=== PATIENT | female | born 1940 | race Caucasian/White ===

== ENCOUNTER 2018-07-01 16:14 | Emergency (ER) | payer MEDICARE ==
[~2018-07-01] VITALS: Ht 157.5 cm; Wt 58.1 kg
[2018-07-01 16:14] VITALS: BP 151/67
[~2018-07-01 16:14] MED LIST: ACET325T9 PO; ATOR40TA59 PO; CARB15DR3 OP; CARB1TAB2 PO; CHOL10003 PO; CYAN10005 PO; DICL100G18 TP; DROX300C PO; FLUD0.1T PO; FLUT9.9S NS; GLUC100018 PO; GUAI600T47 PO; IBUP-1060 PO; LACT1CAP6 PO; MELA3TAB2 PO; METF10007 PO; METH10TA4 PO; MIDO10TA PO; MIRT15TA PO; MULT-638 PO; NYST15CR TP; PANT20TA2 PO; POLY17PO29 PO; POTA20LI27 PEG; QUET25TA5 PO; SENN8.6T99 PO; VIT1TABL8 PO
--- NOTE | 2018-07-01 16:36 | PHYS DOC ---
Adult General HPI HPI Patient is a 77-year-old female who presents with obstruction to her PEG tube. Patient is resident at skilled nursing in [facility] and was diverted by the emergency room doctor at [facility] because they do not have GI service. Patient has had no vomiting. [facility] staff were concerned because they could not do feedings or give meds. Review of Systems Review of Systems Constitutional: Denies fever or chills [] Respiratory: Denies cough or shortness of breath [] Cardiovascular: No additional information not addressed in HPI [] GI: Denies vomiting or diarrhea [] Integument: Denies rash or skin lesions [] Neurologic: Denies headache, focal weakness or sensory changes [] Allergies Allergies Allergies Coded Allergies Type Severity Reaction Last Updated Verified No Known Drug Allergies 06/19/18 No Physical Exam Physical Exam Constitutional: Well developed, well nourished, no acute distress, non-toxic appearance. [] Neck: Normal range of motion, no tenderness, supple. [] Cardiovascular:Heart rate regular rhythm, no murmur [] Lungs & Thorax: Bilateral breath sounds clear to auscultation [] Abdomen: Bowel sounds normal, soft, no tenderness. [] Skin: Warm, dry, no erythema, no rash. [] EKG EKG [] Radiology/Procedures Radiology/Procedures [] Course & Med Decision Making Course & Med Decision Making Pertinent Labs and Imaging studies reviewed. (See chart for details) Patient seen and evaluated by ER staff and ER nurse evaluated patient's PEG tube. Nurse found that there was a pill fragment that was too large to pass and eventually was able to get pill to pass and now fluid is moving freely through tube. Dragon Disclaimer Dragon Disclaimer This electronic medical record was generated, in whole or in part, using a voice recognition dictation system. Departure Departure Impression: Primary Impression: Feeding tube obstruction Disposition: 01 HOME, SELF-CARE Condition: STABLE Referrals: CHRISTINA BABB (PCP) Patient Instructions: Care of a Feeding Tube, [id number] Problem Qualifiers Primary Impression: Feeding tube obstruction Encounter type: initial encounter Qualified Codes: T85.598A - Other mechanical complication of other gastrointestinal prosthetic devices, implants and grafts, initial encounter YOLY XAVIER Jr. DO Jul 01, 2018 16:36
== END 2018-07-01 17:49 | disposition home or self-care (01) ==
LOC: ER 16:14
DX: T85.598A Other mechanical complication of other gastrointestinal prosthetic devices, implants and grafts, initial encounter (principal); Y83.3 Surgical operation with formation of external stoma as the cause of abnormal reaction of the patient, or of later complication, without mention of misadventure at the time of the procedure; Y92.89 Other specified places as the place of occurrence of the external cause
CPT/HCPCS: 99284

== ENCOUNTER 2018-07-03 23:33 | Inpatient (IN) | payer MEDICARE ==
[~2018-07-03] VITALS: Ht 165.1 cm; Wt 48.7 kg
[~2018-07-03 23:33] MED LIST changes: +CYAN-25 PO; -CYAN10005 PO; +POTA20LI2 PEG; -POTA20LI27 PEG
[2018-07-03] MEDS ORDERED: MORPHINE SULFATE 4 MG/ML VIAL. IV/SQ PRN (23:45)
[2018-07-03] MEDS ORDERED: ALBUTEROL SULFATE 2.5 MG/3 ML NEBU. CONT NEB ONE (23:55)
[2018-07-03] MEDS ORDERED: methylPREDNISolone SOD SUCC PF 125 MG/2 ML VIAL. IV ONE (23:55)
[2018-07-03] MEDS ORDERED: IPRATROPIUM BROMIDE 0.5 MG/2.5 ML NEBU. NEB ONE (23:55)
[2018-07-04] VITALS (14 sets, daily range): BP systolic 52–144; BP diastolic 31–78
[2018-07-04 00:01] LABS: BASE EXCESS ABG 1 mmol/L (-3-3); HCO3 ABG 34 mmol/L (21-28); PO2 ABG 132 mmHg (65-108); SAT O2 ABG 96 % (92-99)
[2018-07-04 00:03] LABS: BASO # 0.1 x10^3/uL (0.0-0.2); BASO % 1 % (0-3); EOS % 0 % (0-3); HEMATOCRIT 34.6 % (36.0-47.0); LYMPH # 2.2 x10^3/uL (1.0-4.8); LYMPH % 12 % (24-48); MEAN CORPUSCULAR HEMOGLOBIN 30 pg (25-35); MEAN CORPUSCULAR HGB CONC 32 g/dL (31-37); MEAN CORPUSCULAR VOLUME 94 fL (79-100); MONO # 0.7 x10^3/uL (0.0-1.1); MONO % 4 % (0-9); NEUT # 15.1 x10^3uL (1.8-7.7); NEUT % 83 % (31-73); PLATELET COUNT 369 x10^3/uL (140-400); RED BLOOD COUNT 3.68 x10^6/uL (3.50-5.40); RED CELL DISTRIBUTION WIDTH 13.1 % (11.5-14.5)
[2018-07-04 00:14] LABS: CALCIUM 9.7 mg/dL (8.5-10.1); CREATININE 0.8 mg/dL (0.6-1.0); GFR 69.7; POTASSIUM 4.2 mmol/L (3.5-5.1)
[2018-07-04 00:20] LABS: ALBUMIN 3.4 g/dL (3.4-5.0); ALBUMIN/GLOBULIN RATIO 0.8 (1.0-1.7); TOTAL BILIRUBIN 0.3 mg/dL (0.2-1.0); TOTAL PROTEIN 7.7 g/dL (6.4-8.2)
[2018-07-04 00:37] LABS: % BANDS 4 % (0-9); % EOS 1 % (0-5); % LYMPHS 15 % (24-48); % MONOS 2 % (0-10); % SEGS 78 % (35-66); PLT ESTIMATE ADEQUATE (ADEQUATE); TOXIC GRANULATION SLIGHT
[2018-07-04 00:37] LABS: FIO2 ABG 100; PCO2 ABG 121 mmHg (35-46)
[2018-07-04] MEDS ORDERED: VANCOMYCIN 1GM IVPB FOR OMNI 250 ML IV ONE (00:45)
[2018-07-04] MEDS ORDERED: PIPERACILLIN/TAZOBACTAM 3.375 GM in IV NORMAL SALINE 50ML 50 ML IV ONE (00:45)
[2018-07-04] MEDS ORDERED: FUROSEMIDE 40 MG/4 ML VIAL. IVP ONE (01:00)
--- NOTE | 2018-07-04 01:12 | RAD ---
AP chest x-ray COMPARISON: Chest x-ray June 26, 2017. HISTORY: Extreme shortness of breath. FINDINGS: Borderline cardiomegaly. Mediastinal silhouette is normal. The nasogastric tube on the prior exam has been removed. Mild prominence of the pulmonary vasculature could indicate mild congestion. Development of left perihilar and lower lobe heterogeneous opacity. Right lung clear. A pneumothorax or pleural effusions. Bones unremarkable. IMPRESSION: Left perihilar and lower lobe infiltrate may represent asymmetric edema or pneumonia. There is mild pulmonary vascular congestion likely present. Borderline cardiomegaly is stable. Electronically signed by: Mike Hauser MD (07/04/2018 1:07 AM) [facility]
--- NOTE | 2018-07-04 01:31 | PHYS DOC ---
Past Medical History Past Medical History: Dementia, High Cholesterol, Other Additional Past Medical Histor: PARKINSON'S; DYSPHAGIA; G-TUBE Past Surgical History: Other Additional Past Surgical Histo: G-TUBE PLACEMENT Adult General Chief Complaint Chief Complaint: SHORTNESS OF BREATH HPI HPI Patient is a 77-year-old female who presents via [facility] with reports of respiratory distress. EMS reports that while in route, patient had inadequate respirations and so they were assisting with bagged respirations. Patient recently had been admitted to this facility with respiratory failure. She had also been to this facility because PEG tube had been obstructed. Additional history is limited due to severity of patient condition. Review of Systems Review of Systems Constitutional: Denies fever [] Respiratory: Positive cough and shortness of breath [] Cardiovascular: No additional information not addressed in HPI [] GI: No vomiting or diarrhea [] Neurologic: Positive mental status changes [] Unable to fully assess review of systems due to severity of patient condition. Current Medications Current Medications Current Medications Medications (Trade) Dose Ordered Sig/Alex Start Time Stop Time Status Last Admin Dose Admin Albuterol Sulfate (Ventolin Neb Soln) 10 mg 1X ONCE 07/03/18 23:55 07/03/18 23:56 DC 07/04/18 00:22 10 MG Furosemide (Lasix) 60 mg 1X ONCE 07/04/18 01:00 07/04/18 01:01 DC Ipratropium [place] (Atrovent) 0.5 mg 1X ONCE 07/03/18 23:55 07/03/18 23:56 DC 07/04/18 00:22 0.5 MG Methylprednisolone Sodium Succinate (SOLU-Medrol 125MG VIAL) 125 mg 1X ONCE 07/03/18 23:55 07/03/18 23:56 DC 07/04/18 00:03 125 MG Morphine Sulfate (Morphine Sulfate) 2 mg PRN Q15MIN PRN 07/03/18 23:45 07/04/18 23:44 07/04/18 00:11 2 MG Piperacillin Sod/ Tazobactam Sod 3.375 gm/Sodium Chloride 50 ml @ 100 mls/hr 1X ONCE 07/04/18 00:45 07/04/18 01:14 DC Vancomycin HCl 250 ml @ 250 mls/hr 1X ONCE 07/04/18 00:45 07/04/18 01:44 Allergies Allergies Allergies Coded Allergies Type Severity Reaction Last Updated Verified No Known Drug Allergies 06/19/18 No Physical Exam Physical Exam Constitutional: Patient unresponsive to verbal stimuli in moderate respiratory distress. [] HENT: Normocephalic, atraumatic, bilateral external ears normal, oropharynx dry , no oral exudates, nose normal. [] Eyes: PERRLA. [] Neck: Supple with no JVD or lymphadenopathy. [] Cardiovascular: Mildly tachycardic rate with regular rhythm [] Lungs & Thorax: Poor respiratory drive. Coarse rhonchi are noted in the lung bases bilaterally to auscultation [] Abdomen: Bowel sounds are managed, soft, no apparent tenderness. [] Skin: Warm, dry. [] Extremities: No tenderness, no cyanosis, no clubbing, no edema. [] Neurologic: Unresponsive to verbal stimuli. Unable to evaluate neurological status due to patient's middle state. [] Current Patient Data Vital Signs Vital Signs Date Time Temp Pulse Resp B/P (MAP) Pulse Ox O2 Delivery O2 Flow Rate FiO2 07/04/18 00:25 96 BiPAP/CPAP 07/04/18 00:11 18 Lab Values Laboratory Tests Test 07/03/18 23:41 07/03/18 23:50 O2 Saturation 96 % (92-99) Arterial Blood pH 7.06 (7.35-7.45) *L Arterial Blood pCO2 at Patient Temp 121 mmHg (35-46) *H Arterial Blood pO2 at Patient Temp 132 mmHg (65-108) H Arterial Blood HCO3 34 mmol/L (21-28) H Arterial Blood Base Excess 1 mmol/L (-3-3) FiO2 100 White Blood Count 18.0 x10^3/uL (4.0-11.0) H Red Blood Count 3.68 x10^6/uL (3.50-5.40) Hemoglobin 11.0 g/dL (12.0-15.5) L Hematocrit 34.6 % (36.0-47.0) L Mean Corpuscular Volume 94 fL (79-100) Mean Corpuscular Hemoglobin 30 pg (25-35) Mean Corpuscular Hemoglobin Concent 32 g/dL (31-37) Red Cell Distribution Width 13.1 % (11.5-14.5) Platelet Count 369 x10^3/uL (140-400) Neutrophils (%) (Auto) 83 % (31-73) H Lymphocytes (%) (Auto) 12 % (24-48) L Monocytes (%) (Auto) 4 % (0-9) Eosinophils (%) (Auto) 0 % (0-3) Basophils (%) (Auto) 1 % (0-3) Neutrophils # (Auto) 15.1 x10^3uL (1.8-7.7) H Lymphocytes # (Auto) 2.2 x10^3/uL (1.0-4.8) Monocytes # (Auto) 0.7 x10^3/uL (0.0-1.1) Eosinophils # (Auto) 0.0 x10^3/uL (0.0-0.7) Basophils # (Auto) 0.1 x10^3/uL (0.0-0.2) Segmented Neutrophils % 78 % (35-66) H Band Neutrophils % 4 % (0-9) Lymphocytes % 15 % (24-48) L Monocytes % 2 % (0-10) Eosinophils % 1 % (0-5) Toxic Granulation Slight Platelet Estimate Adequate (ADEQUATE) Sodium Level 146 mmol/L (136-145) H Potassium Level 4.2 mmol/L (3.5-5.1) Chloride Level 105 mmol/L (98-107) Carbon Dioxide Level 32 mmol/L (21-32) Anion Gap 9 (6-14) Blood Urea Nitrogen 13 mg/dL (7-20) Creatinine 0.8 mg/dL (0.6-1.0) Estimated GFR (Cockcroft-Gault) 69.7 BUN/Creatinine Ratio 16 (6-20) Glucose Level 260 mg/dL (70-99) H Calcium Level 9.7 mg/dL (8.5-10.1) Total Bilirubin 0.3 mg/dL (0.2-1.0) Aspartate Amino Transferase (AST) 15 U/L (15-37) Alanine Aminotransferase (ALT) 17 U/L (14-59) Alkaline Phosphatase 60 U/L (46-116) Troponin I Quantitative 0.042 ng/mL (0.000-0.055) DW-Suo-O-Type Natriuretic Peptide 6407 pg/mL (0-449) H Total Protein 7.7 g/dL (6.4-8.2) Albumin 3.4 g/dL (3.4-5.0) Albumin/Globulin Ratio 0.8 (1.0-1.7) L Laboratory Tests 07/03/18 23:50 Laboratory Tests 07/03/18 23:50 EKG EKG [] Interpretation Time: EKG demonstrates sinus rhythm with rate of 99. Radiology/Procedures Radiology/Procedures [] Impressions: Chest x-ray demonstrates interstitial edema with what appears to be superimposed left lower lobe infiltrate Course & Med Decision Making Course & Med Decision Making Pertinent Labs and Imaging studies reviewed. (See chart for details) [] Dragon Disclaimer Dragon Disclaimer This electronic medical record was generated, in whole or in part, using a voice recognition dictation system. Departure Departure Impression: Primary Impression: Acute hypercapnic respiratory failure Additional Impressions: CHF (congestive heart failure) Facility-acquired pneumonia Disposition: ADMITTED INPATIENT Admitting Physician: Figueroa Greenwood Condition: GUARDED Referrals: UNKNOWN PCP NAME (PCP) Problem Qualifiers Additional Impressions: CHF (congestive heart failure) Heart failure type: unspecified Heart failure chronicity: unspecified Qualified Codes: I50.9 - Heart failure, unspecified YOLY XAVIER Jr. DO Jul 04, 2018 01:31
[2018-07-04] MEDS ORDERED: ONDANSETRON PF 4 MG/2 ML VIAL. IV PRN (01:45)
[2018-07-04] MEDS ORDERED: ACETAMINOPHEN 325 MG TABLET. PO PRN (01:45)
[2018-07-04] MEDS ORDERED: MORPHINE SULFATE 4 MG/ML VIAL. IV PRN (01:45)
--- NOTE | 2018-07-04 02:08 | EKG ---
[facility] [address] [place] [address] Test Date: 2018-07-04 Test Time: 00:17:42 Pat Name: ALFONSO REYES Department: Room: 114 1 Gender: F Residential Appliance Repair Technician: : [id number] Requested By: YOLY XAVIER Order Number: [id number] Reading MD: Otoniel Gonzales MD Measurements Intervals [place] Rate: 99 P: 32 OH: 130 QRS: -26 QRSD: 78 T: 126 QT: 328 QTc: 421 Interpretive Statements SINUS RHYTHM LEFTWARD AXIS LVH WITH REPOLARIZATION ABNORMALITY NON-SPECIFIC ST/T CHANGES Electronically Signed On 07-10-2018 9:15:13 [employer] by Otoniel Gonzales MD
[2018-07-04 03:34] LABS: BILIRUBIN,URINE NEGATIVE (NEG); CLARITY,URINE CLOUDY; COLOR,URINE YELLOW; NITRITE,URINE NEGATIVE (NEG); PROTEIN,URINE 100 mg/dL (NEG-TRACE); UROBILINOGEN,URINE 0.2 mg/dL (0.2 mg/dL)
[2018-07-04 03:43] LABS: BACTERIA,URINE FEW /HPF (0-FEW); SQUAMOUS EPITHELIAL CELL,UR OCC /LPF; WBC,URINE TNTC /HPF (0-4); YEAST,URINE PRESENT /HPF
--- NOTE | 2018-07-04 03:50 | NUR ---
Patient admitted to ICU room 114. Arrived via gurney on Bipap accompanied by RN and RT. Patient unresponsive at this time and unable to answer admission questions. Admission information completed using report from ED nurse and past visit. Unable to orientate patient at this time. Pressure ulcer present on admission see wound assessment intervention for details. Patient arrived with Castaneda cath that was inserted prior to admission. Physician notified of low MAP, orders received to start Levophed on patient at this time.
[2018-07-04] MEDS ORDERED: NOREPINEPHRIN 8MG/250ML PREMIX 250 ML IV PRN (04:30)
[2018-07-04] MEDS ORDERED: PIP/TAZO PER PHARMACY MC PRN (04:30)
[2018-07-04] MEDS ORDERED: PIPERACILLIN/TAZOBACTAM 2.25 GM in IV NORMAL SALINE 50ML 50 ML IV SCH (06:00)
[2018-07-04] MEDS: VANCOMYCIN PER PHARMACY MC PRN ×2 (06:17→10:45)
--- NOTE | 2018-07-04 06:21 | NUR ---
Pharmacy Vancomycin Dosing Note S:Consulted to monitor and dose vancomycin started 07/04/18. O:ALFONSO REYES is a 77 year old F with HCAP . Height: 5 feet, 5 inches Weight: 48.748507 kg [place] Body Weight: 57.00 Adjusted Body Weight: 53.68 Dosing Weight: Actual Other Antibiotics: ZOSYN 2.25GM IV Q6H LABS: Last BUN: 13 Last Creatinine: 0.8 Creatinine Clearance: 36.8 mL/min Last WBC: 18.0 Last Procalcitonin: Tmax (past 24 hours): Microbiology: I/O: Drug Levels: Last level: on at Last dose given at Vancomycin Dosing: Loading Dose: 1000 mg x1 07/04/18 0045 Dosing Weight: Actual Target Trough: 15-20 A: Based on: Actual Wt and CrCl P: 1. 07/05/18 0100 Vancomycin 750 mg IV q24h 2. Follow up Trough level on 07/06/18 at 0030 3. Pharmacy will continue to monitor, follow and adjust therapy as needed. HUNTER GOMEZ RPH, 07/04/18 0622 Signed: 07/04/18 at 0623 by HUNTER GOMEZ RPH PHA
[2018-07-04] MEDS ORDERED: IPRATRPIUM/ALBUTEROL 0.5/2.5MG 3 ML NEBU. NEB SCH (08:00)
[2018-07-04 08:22] LABS: BASE EXCESS ABG -1 mmol/L (-3-3); HCO3 ABG 30 mmol/L (21-28); PO2 ABG 221 mmHg (65-108); SAT O2 ABG 99 % (92-99)
--- NOTE | 2018-07-04 08:27 | NUR ---
SS following for discharge planning. SS reviewed pt chart. Pt is a LTC resident from [facility], ; fax [phone]. Pt is currently on BIPAP/CPAP. SS will continue to follow for discharge needs.
[2018-07-04 08:29] LABS: FIO2 ABG 70; PCO2 ABG 98 mmHg (35-46)
--- NOTE | 2018-07-04 08:40 | NUR ---
Pt O2 sats decreased down to 54%, FiO2 increased back to 100%. Family at the bedside. Dr. Wynn on the unit and saw the pt and spoke with the family. Plans to move to comfort care when the rest of the family is here and to remove the bipap and start a morphine drip to keep pt comfortable.
--- NOTE | 2018-07-04 09:12 | PDOC ---
PULMONARY PROGRESS NOTES Vitals Vital Signs Date Time Temp Pulse Resp B/P (MAP) Pulse Ox O2 Delivery O2 Flow Rate FiO2 07/04/18 08:10 98 BiPAP/CPAP 07/04/18 08:00 100.5 96 27 109/67 (81) 100.5 07/04/18 02:20 15.0 General: Alert HEENT: Other Lungs: Clear Cardiovascular: S1, S2 Abdomen: Soft, Non-tender, Other Extremities: Other Labs Laboratory Tests Test 07/03/18 23:41 07/03/18 23:50 07/04/18 02:50 07/04/18 04:20 O2 Saturation 96 % (92-99) Arterial Blood pH 7.06 (7.35-7.45) Arterial Blood pCO2 at Patient Temp 121 mmHg (35-46) Arterial Blood pO2 at Patient Temp 132 mmHg (65-108) Arterial Blood HCO3 34 mmol/L (21-28) Arterial Blood Base Excess 1 mmol/L (-3-3) FiO2 100 White Blood Count 18.0 x10^3/uL (4.0-11.0) Red Blood Count 3.68 x10^6/uL (3.50-5.40) Hemoglobin 11.0 g/dL (12.0-15.5) Hematocrit 34.6 % (36.0-47.0) Mean Corpuscular Volume 94 fL (79-100) Mean Corpuscular Hemoglobin 30 pg (25-35) Mean Corpuscular Hemoglobin Concent 32 g/dL (31-37) Red Cell Distribution Width 13.1 % (11.5-14.5) Platelet Count 369 x10^3/uL (140-400) Neutrophils (%) (Auto) 83 % (31-73) Lymphocytes (%) (Auto) 12 % (24-48) Monocytes (%) (Auto) 4 % (0-9) Eosinophils (%) (Auto) 0 % (0-3) Basophils (%) (Auto) 1 % (0-3) Neutrophils # (Auto) 15.1 x10^3uL (1.8-7.7) Lymphocytes # (Auto) 2.2 x10^3/uL (1.0-4.8) Monocytes # (Auto) 0.7 x10^3/uL (0.0-1.1) Eosinophils # (Auto) 0.0 x10^3/uL (0.0-0.7) Basophils # (Auto) 0.1 x10^3/uL (0.0-0.2) Segmented Neutrophils % 78 % (35-66) Band Neutrophils % 4 % (0-9) Lymphocytes % 15 % (24-48) Monocytes % 2 % (0-10) Eosinophils % 1 % (0-5) Toxic Granulation Slight Platelet Estimate Adequate (ADEQUATE) Sodium Level 146 mmol/L (136-145) Potassium Level 4.2 mmol/L (3.5-5.1) Chloride Level 105 mmol/L (98-107) Carbon Dioxide Level 32 mmol/L (21-32) Anion Gap 9 (6-14) Blood Urea Nitrogen 13 mg/dL (7-20) Creatinine 0.8 mg/dL (0.6-1.0) Estimated GFR (Cockcroft-Gault) 69.7 BUN/Creatinine Ratio 16 (6-20) Glucose Level 260 mg/dL (70-99) Lactic Acid Level 0.9 mmol/L (0.4-2.0) Calcium Level 9.7 mg/dL (8.5-10.1) Total Bilirubin 0.3 mg/dL (0.2-1.0) Aspartate Amino Transf (AST/SGOT) 15 U/L (15-37) Alanine Aminotransferase (ALT/SGPT) 17 U/L (14-59) Alkaline Phosphatase 60 U/L (46-116) Troponin I Quantitative 0.042 ng/mL (0.000-0.055) 0.071 ng/mL (0.000-0.055) GO-Hhp-Y-Type Natriuretic Peptide 6407 pg/mL (0-449) Total Protein 7.7 g/dL (6.4-8.2) Albumin 3.4 g/dL (3.4-5.0) Albumin/Globulin Ratio 0.8 (1.0-1.7) Urine Collection Type Unknown Urine Color Yellow Urine Clarity Cloudy Urine pH 7.0 Urine Specific [place] 1.020 Urine Protein 100 mg/dL (NEG-TRACE) Urine Glucose (UA) Negative mg/dL (NEG) Urine Ketones (Stick) 15 mg/dL (NEG) Urine Blood Large (NEG) Urine Nitrite Negative (NEG) Urine Bilirubin Negative (NEG) Urine Urobilinogen Dipstick 0.2 mg/dL (0.2 mg/dL) Urine Leukocyte Esterase Large (NEG) Urine RBC 11-20 /HPF (0-2) Urine WBC Tntc /HPF (0-4) Urine Squamous Epithelial Cells Occ /LPF Urine Bacteria Few /HPF (0-FEW) Urine Mucus Mod /LPF Urine Yeast Present /HPF Test 07/04/18 07:35 07/04/18 08:10 Troponin I Quantitative 0.063 ng/mL (0.000-0.055) O2 Saturation 99 % (92-99) Arterial Blood pH 7.11 (7.35-7.45) Arterial Blood pCO2 at Patient Temp 98 mmHg (35-46) Arterial Blood pO2 at Patient Temp 221 mmHg (65-108) Arterial Blood HCO3 30 mmol/L (21-28) Arterial Blood Base Excess -1 mmol/L (-3-3) FiO2 70 Laboratory Tests Test 07/03/18 23:41 07/03/18 23:50 07/04/18 02:50 07/04/18 04:20 O2 Saturation 96 % (92-99) Arterial Blood pH 7.06 (7.35-7.45) Arterial Blood pCO2 at Patient Temp 121 mmHg (35-46) Arterial Blood pO2 at Patient Temp 132 mmHg (65-108) Arterial Blood HCO3 34 mmol/L (21-28) Arterial Blood Base Excess 1 mmol/L (-3-3) FiO2 100 White Blood Count 18.0 x10^3/uL (4.0-11.0) Red Blood Count 3.68 x10^6/uL (3.50-5.40) Hemoglobin 11.0 g/dL (12.0-15.5) Hematocrit 34.6 % (36.0-47.0) Mean Corpuscular Volume 94 fL (79-100) Mean Corpuscular Hemoglobin 30 pg (25-35) Mean Corpuscular Hemoglobin Concent 32 g/dL (31-37) Red Cell Distribution Width 13.1 % (11.5-14.5) Platelet Count 369 x10^3/uL (140-400) Neutrophils (%) (Auto) 83 % (31-73) Lymphocytes (%) (Auto) 12 % (24-48) Monocytes (%) (Auto) 4 % (0-9) Eosinophils (%) (Auto) 0 % (0-3) Basophils (%) (Auto) 1 % (0-3) Neutrophils # (Auto) 15.1 x10^3uL (1.8-7.7) Lymphocytes # (Auto) 2.2 x10^3/uL (1.0-4.8) Monocytes # (Auto) 0.7 x10^3/uL (0.0-1.1) Eosinophils # (Auto) 0.0 x10^3/uL (0.0-0.7) Basophils # (Auto) 0.1 x10^3/uL (0.0-0.2) Segmented Neutrophils % 78 % (35-66) Band Neutrophils % 4 % (0-9) Lymphocytes % 15 % (24-48) Monocytes % 2 % (0-10) Eosinophils % 1 % (0-5) Toxic Granulation Slight Platelet Estimate Adequate (ADEQUATE) Sodium Level 146 mmol/L (136-145) Potassium Level 4.2 mmol/L (3.5-5.1) Chloride Level 105 mmol/L (98-107) Carbon Dioxide Level 32 mmol/L (21-32) Anion Gap 9 (6-14) Blood Urea Nitrogen 13 mg/dL (7-20) Creatinine 0.8 mg/dL (0.6-1.0) Estimated GFR (Cockcroft-Gault) 69.7 BUN/Creatinine Ratio 16 (6-20) Glucose Level 260 mg/dL (70-99) Lactic Acid Level 0.9 mmol/L (0.4-2.0) Calcium Level 9.7 mg/dL (8.5-10.1) Total Bilirubin 0.3 mg/dL (0.2-1.0) Aspartate Amino Transf (AST/SGOT) 15 U/L (15-37) Alanine Aminotransferase (ALT/SGPT) 17 U/L (14-59) Alkaline Phosphatase 60 U/L (46-116) Troponin I Quantitative 0.042 ng/mL (0.000-0.055) 0.071 ng/mL (0.000-0.055) KL-Qio-V-Type Natriuretic Peptide 6407 pg/mL (0-449) Total Protein 7.7 g/dL (6.4-8.2) Albumin 3.4 g/dL (3.4-5.0) Albumin/Globulin Ratio 0.8 (1.0-1.7) Urine Collection Type Unknown Urine Color Yellow Urine Clarity Cloudy Urine pH 7.0 Urine Specific [place] 1.020 Urine Protein 100 mg/dL (NEG-TRACE) Urine Glucose (UA) Negative mg/dL (NEG) Urine Ketones (Stick) 15 mg/dL (NEG) Urine Blood Large (NEG) Urine Nitrite Negative (NEG) Urine Bilirubin Negative (NEG) Urine Urobilinogen Dipstick 0.2 mg/dL (0.2 mg/dL) Urine Leukocyte Esterase Large (NEG) Urine RBC 11-20 /HPF (0-2) Urine WBC Tntc /HPF (0-4) Urine Squamous Epithelial Cells Occ /LPF Urine Bacteria Few /HPF (0-FEW) Urine Mucus Mod /LPF Urine Yeast Present /HPF Test 07/04/18 07:35 07/04/18 08:10 Troponin I Quantitative 0.063 ng/mL (0.000-0.055) O2 Saturation 99 % (92-99) Arterial Blood pH 7.11 (7.35-7.45) Arterial Blood pCO2 at Patient Temp 98 mmHg (35-46) Arterial Blood pO2 at Patient Temp 221 mmHg (65-108) Arterial Blood HCO3 30 mmol/L (21-28) Arterial Blood Base Excess -1 mmol/L (-3-3) FiO2 70 Medications Active Scripts Medications Dose Route/Sig Max Daily Dose Days Date Category Voltaren (Diclofenac Sodium) 100 Gm Gel..gram. 4 Gm TP PRN Q12HRS PRN 06/19/18 Reported Vitamin D3 (Cholecalciferol (Vitamin D3)) 1,000 Unit Tablet 2,000 Unit PO DAILY 06/19/18 Reported Vitamin B-12 (Cyanocobalamin (Vitamin B-12)) 1,000 Mcg Tablet 1,000 Mcg PO DAILY 06/19/18 Reported Tylenol (Acetaminophen) 325 Mg Tablet 325 Mg PO PRN Q6-8HRS PRN 06/19/18 Reported Thera M Plus Tablet (Multivits,Ca,Minerals/Iron/FA) 1 Each Tablet 1 Each PO DAILY 06/19/18 Reported Seroquel (Quetiapine Fumarate) 25 Mg Tablet 25 Mg PO HS 06/19/18 Reported Senokot (Sennosides) 8.6 Mg Tablet 1 Tab PO PRN DAILY PRN 1/14/19 Reported Ritalin (Methylphenidate Hcl) 10 Mg Tablet 10 Mg PO DAILY 06/19/18 Reported Remeron (Mirtazapine) 15 Mg Tablet 15 Mg PO HS 06/19/18 Reported Refresh Optive Eye Drops (Carboxymethylcellulos/Glycerin) 15 Ml Drops 15 Ml OP TID 06/19/18 Reported Protonix (Pantoprazole Sodium) 20 Mg Tablet.dr 20 Mg PO DAILY 06/19/18 Reported Potassium Chloride Oral Liquid (Potassium Chloride) 20 Meq/15 Ml Liquid 20 Meq PEG DAILY 06/19/18 Reported Nystatin 15 Gm Cream..g. 15 Gm TP BID 06/19/18 Reported Miralax (Polyethylene Glycol 3350) 17 Gm Powd.pack 1 Packet PO PRN DAILY 06/19/18 Reported Midodrine Hcl 10 Mg Tablet 10 Mg PO TID 06/19/18 Reported Metformin Hcl 1,000 Mg Tablet 1,000 Mg PO BIDWMEALS 06/19/18 Reported Melatonin 3 Mg Tablet 3 Mg PO HS 06/19/18 Reported Probiotic (Lactobacillus Acidophilus) 1 Each Capsule 1 Each PO BID 06/19/18 Reported I-Nadeem Tablet (Vit A,C & E/Lutein/Minerals) 1 Each Tablet 1 Each PO DAILY 06/19/18 Reported Ibuprofen 800 Mg Tablet 800 Mg PO PRN Q8HRS PRN 06/19/18 Reported Mucinex (Guaifenesin) 600 Mg Tablet.er 1 Tab PO BID 06/19/18 Reported Glucosamine (Glucosamine Sulfate 2KCL) 1,000 Mg Tablet 1,000 Mg PO DAILY 06/19/18 Reported Fludrocortisone Acetate 0.1 Mg Tablet 0.1 Mg PO BID 06/19/18 Reported Flonase Allergy Relief (Fluticasone Propionate) 9.9 Ml [place].susp 2 Sprays NS DAILY 06/19/18 Reported Northera (Droxidopa) 300 Mg Capsule 300 Mg PO TIDAC 06/19/18 Reported Sinemet 25-100 Mg Tablet (Carbidopa/Levodopa) 1 Each Tablet 1 Tab PO PRN Q8HRS PRN 06/19/18 Reported Sinemet 25-100 Mg Tablet (Carbidopa/Levodopa) 1 Each Tablet 0.5 Tab PO Q4HRS 06/19/18 Reported Atorvastatin Calcium 40 Mg Tablet 40 Mg PO HS 06/19/18 Reported Impression . Long discussion with family Pt with advance directive, no intubation no CPR will proceed with morphine drip and prn Ativan see orders Pt is actively dying DINORAH FIGUEROA MD Jul 04, 2018 09:12
[2018-07-04] MEDS ORDERED: MORPHINE SULFATE/PF 30 ML IV PRN (09:15)
[2018-07-04] MEDS ORDERED: MORPHINE SULFATE 2 MG/ML VIAL. IV SCH (09:15)
[2018-07-04] MEDS ORDERED: MORPHINE SULFATE 4 MG/ML VIAL. IV ONE (10:00)
--- NOTE | 2018-07-04 10:35 | NUR ---
PT given 4mg of morphine and 2mg of ativan and morphine drip started. Breathing appears to be less labored, bipap removed and pt placed on nasal cannula. Family at the bedside with clergyman.
--- NOTE | 2018-07-04 11:50 | NUR ---
Pt at this time, Pronouncement of made by Dr. Moreland. Family at the bedside with clergyman.
--- NOTE | 2018-07-04 11:56 | PDOC1 ---
History and Physical Date of Admission Date of Admission DATE: 07/04/18 TIME: 11:46 Identification/Chief Complaint Chief Complaint Shortness of breath Source Source: Caregiver, Chart review History of Present Illness History of Present Illness 77-year-old female who presents via [facility] with reports of respiratory distress. EMS reports that while in route, patient had inadequate respirations and so they were assisting with bagged respirations. Patient recently had been admitted to this facility with respiratory failure. She had also been to this facility because PEG tube had been obstructed. Additional history is limited due to severity of patient condition. She was found with AB.06/121/132 started on BIPAP, had leukocytosis and hypernatremia as well She is a resident at [facility], who was admitted on 06/19/2018 with an altered mental status. She was found to be unresponsive with agonal breathing. Was treated for sepsis with possible sources of pneumonia versus urinary tract infection. She did very well actually, and she was treated with Zosyn and vancomycin. She was eventually successfully extubated; however, the family have noted marked decline in her condition recently, and after discussion with the palliative care team, they opted to account for comfort care , and therefore, a decision was made to discharge her back to [facility] with the plan to consult hospice for evaluation and treatment which was pending prior to her return to the ED today. After long discussion with family and pulmonary the family has asked to have hospice evaluation now and withdraw aggressive care. Current Problem List Problem List Problems Medical Problems: (1) Acute hypercapnic respiratory failure Status: Acute (2) CHF (congestive heart failure) Status: Acute (3) Facility-acquired pneumonia Status: Acute Current Medications Current Medications Current Medications Ipratropium [place] (Atrovent) 0.5 mg 1X ONCE NEB Last administered on at 00:22; Start 07/03/18 at 23:55; Stop 07/03/18 at 23:56; Status DC Methylprednisolone Sodium Succinate (SOLU-Medrol 125MG VIAL) 125 mg 1X ONCE IV Last administered on 07/04/18at 00:03; Start 07/03/18 at 23:55; Stop 07/03/18 at 23:56; Status DC Albuterol Sulfate (Ventolin Neb Soln) 10 mg 1X ONCE CONT NEB Last administered on 07/04/18at 00:22; Start 07/03/18 at 23:55; Stop 07/03/18 at 23:56 ; Status DC Morphine Sulfate (Morphine Sulfate) 2 mg PRN Q15MIN PRN IV/SQ PAIN GREATER THAN 3/10 Last administered on 07/04/18at 00:11; Start 07/03/18 at 23:45; Stop at 08:23; Status DC Vancomycin HCl 250 ml @ 250 mls/hr 1X ONCE IV Last administered on 07/04/18at 01:28; Start 07/04/18 at 00:45; Stop 07/04/18 at 01:44; Status DC Piperacillin Sod/ Tazobactam Sod 3.375 gm/Sodium Chloride 50 ml @ 100 mls/hr 1X ONCE IV Last administered on 07/04/18at 02:55; Start 07/04/18 at 00:45; Stop 07/04/18 at 01:14; Status DC Furosemide (Lasix) 60 mg 1X ONCE IVP Last administered on 07/04/18at 01:20; Start 07/04/18 at 01:00; Stop 07/04/18 at 01:01; Status DC Ondansetron HCl (Zofran) 4 mg PRN Q8HRS PRN IV NAUSEA/VOMITING; Start 07/04/18 at 01:45; Stop 07/05/18 at 01:44 Morphine Sulfate (Morphine Sulfate) 2 mg PRN Q2HR PRN IV PAIN; Start 07/04/18 at 01:45; Stop 07/05/18 at 01:44 Acetaminophen (Tylenol) 650 mg PRN Q4HRS PRN PO FEVER; Start 07/04/18 at 01:45 ; Stop 07/05/18 at 01:44 Albuterol/ Ipratropium (Duoneb) 3 ml RTQID NEB Last administered on 07/04/18at 08:17; Start 07/04/18 at 08:00; Stop 07/05/18 at 07:59 Norepinephrine Bitartrate 250 ml @ 1.875 mls/ hr CONT PRN IV SEE I/O RECORD Last administered on 07/04/18at 04:42; Start 07/04/18 at 04:30 Vancomycin HCl (Vanco Per Pharmacy) 1 each PRN DAILY PRN MC SEE COMMENTS Last administered on 07/04/18at 10:45; Start 07/04/18 at 04:30 Piperacillin Sod/ Tazobactam Sod (Zosyn Per Pharmacy) 1 each PRN DAILY PRN MC SEE COMMENTS; Start 07/04/18 at 04:30 Piperacillin Sod/ Tazobactam Sod 2.25 gm/Sodium Chloride 50 ml @ 100 mls/hr Q6HRS IV Last administered on 07/04/18at 05:43; Start 07/04/18 at 06:00 Vancomycin HCl 750 mg/Sodium Chloride 250 ml @ 250 mls/hr Q24H IV ; Start 07/05 at 01:00 Vancomycin HCl (Vancomycin Trough Level) 1 each 1X ONCE MC ; Start 07/06/18 at 00:30; Stop 07/06/18 at 00:31 Morphine Sulfate (Morphine Sulfate) 2 mg CONT IV ; Start 07/04/18 at 09:15; Stop 07/04/18 at 09:18; Status DC Lorazepam (Ativan) 2 mg PRN Q2HRS PRN IV ANXIETY / AGITATION Last administered on 07/04/18at 10:33; Start 07/04/18 at 09:15 Morphine Sulfate 30 ml @ 0 mls/hr CONT PRN PRN IV PER PROTOCOL Last administered on 07/04/18at 10:45; Start 07/04/18 at 09:15 Morphine Sulfate (Morphine Sulfate) 4 mg 1X ONCE IV Last administered on at 10:33; Start 07/04/18 at 10:00; Stop 07/04/18 at 10:01; Status DC Active Scripts Active Reported Voltaren (Diclofenac Sodium) 100 Gm Gel..gram. 4 Gm TP PRN Q12HRS PRN Vitamin D3 (Cholecalciferol (Vitamin D3)) 1,000 Unit Tablet 2,000 Unit PO DAILY Vitamin B-12 (Cyanocobalamin (Vitamin B-12)) 1,000 Mcg Tablet 1,000 Mcg PO DAILY Tylenol (Acetaminophen) 325 Mg Tablet 325 Mg PO PRN Q6-8HRS PRN Thera M Plus Tablet (Multivits,Ca,Minerals/Iron/FA) 1 Each Tablet 1 Each PO DAILY Seroquel (Quetiapine Fumarate) 25 Mg Tablet 25 Mg PO HS Senokot (Sennosides) 8.6 Mg Tablet 1 Tab PO PRN DAILY PRN Ritalin (Methylphenidate Hcl) 10 Mg Tablet 10 Mg PO DAILY Remeron (Mirtazapine) 15 Mg Tablet 15 Mg PO HS Refresh Optive Eye Drops (Carboxymethylcellulos/Glycerin) 15 Ml Drops 15 Ml OP TID Protonix (Pantoprazole Sodium) 20 Mg Tablet.dr 20 Mg PO DAILY Potassium Chloride Oral Liquid (Potassium Chloride) 20 Meq/15 Ml Liquid 20 Meq PEG DAILY Nystatin 15 Gm Cream..g. 15 Gm TP BID Miralax (Polyethylene Glycol 3350) 17 Gm Powd.pack 1 Packet PO PRN DAILY Midodrine Hcl 10 Mg Tablet 10 Mg PO TID Metformin Hcl 1,000 Mg Tablet 1,000 Mg PO BIDWMEALS Melatonin 3 Mg Tablet 3 Mg PO HS Probiotic (Lactobacillus Acidophilus) 1 Each Capsule 1 Each PO BID I-Nadeem Tablet (Vit A,C & E/Lutein/Minerals) 1 Each Tablet 1 Each PO DAILY Ibuprofen 800 Mg Tablet 800 Mg PO PRN Q8HRS PRN Mucinex (Guaifenesin) 600 Mg Tablet.er 1 Tab PO BID Glucosamine (Glucosamine Sulfate 2KCL) 1,000 Mg Tablet 1,000 Mg PO DAILY Fludrocortisone Acetate 0.1 Mg Tablet 0.1 Mg PO BID Flonase Allergy Relief (Fluticasone Propionate) 9.9 Ml [place].susp 2 Sprays NS DAILY Northera (Droxidopa) 300 Mg Capsule 300 Mg PO TIDAC Sinemet 25-100 Mg Tablet (Carbidopa/Levodopa) 1 Each Tablet 1 Tab PO PRN Q8HRS PRN Sinemet 25-100 Mg Tablet (Carbidopa/Levodopa) 1 Each Tablet 0.5 Tab PO Q4HRS Atorvastatin Calcium 40 Mg Tablet 40 Mg PO HS Allergies Allergies: Coded Allergies: No Known Drug Allergies (Unverified , 06/19/18) PER FAMILY ROS Review of System Unable to obtain due to patient condition Physical Exam General: severe distress HEENT: Atraumatic, PERRLA, EOMI, Mucous membr. moist/pink Lungs: Other (Bilateral rhonci) Heart: S1S2, RRR, no gallops, no murmurs Abdomen: Normal bowel sounds, Soft, No tenderness, No hepatosplenomegaly, No masses Extremities: No clubbing, No cyanosis, Normal pulses, Other (Bilateral edema, bruising) Skin: Other (Brusing, skin breakdown in gluteal area) Neuro: Other (Moving limbs) Vitals Vitals Vital Signs Date Time Temp Pulse Resp B/P (MAP) Pulse Ox O2 Delivery O2 Flow Rate FiO2 07/04/18 11:00 35 26 103/48 (66) 85 Nasal Cannula 2.0 07/04/18 08:00 100.5 100.5 Labs Labs Laboratory Tests Test 07/03/18 23:41 07/03/18 23:50 07/04/18 02:50 07/04/18 04:20 O2 Saturation 96 % (92-99) Arterial Blood pH 7.06 (7.35-7.45) Arterial Blood pCO2 at Patient Temp 121 mmHg (35-46) Arterial Blood pO2 at Patient Temp 132 mmHg (65-108) Arterial Blood HCO3 34 mmol/L (21-28) Arterial Blood Base Excess 1 mmol/L (-3-3) FiO2 100 White Blood Count 18.0 x10^3/uL (4.0-11.0) Red Blood Count 3.68 x10^6/uL (3.50-5.40) Hemoglobin 11.0 g/dL (12.0-15.5) Hematocrit 34.6 % (36.0-47.0) Mean Corpuscular Volume 94 fL (79-100) Mean Corpuscular Hemoglobin 30 pg (25-35) Mean Corpuscular Hemoglobin Concent 32 g/dL (31-37) Red Cell Distribution Width 13.1 % (11.5-14.5) Platelet Count 369 x10^3/uL (140-400) Neutrophils (%) (Auto) 83 % (31-73) Lymphocytes (%) (Auto) 12 % (24-48) Monocytes (%) (Auto) 4 % (0-9) Eosinophils (%) (Auto) 0 % (0-3) Basophils (%) (Auto) 1 % (0-3) Neutrophils # (Auto) 15.1 x10^3uL (1.8-7.7) Lymphocytes # (Auto) 2.2 x10^3/uL (1.0-4.8) Monocytes # (Auto) 0.7 x10^3/uL (0.0-1.1) Eosinophils # (Auto) 0.0 x10^3/uL (0.0-0.7) Basophils # (Auto) 0.1 x10^3/uL (0.0-0.2) Segmented Neutrophils % 78 % (35-66) Band Neutrophils % 4 % (0-9) Lymphocytes % 15 % (24-48) Monocytes % 2 % (0-10) Eosinophils % 1 % (0-5) Toxic Granulation Slight Platelet Estimate Adequate (ADEQUATE) Sodium Level 146 mmol/L (136-145) Potassium Level 4.2 mmol/L (3.5-5.1) Chloride Level 105 mmol/L (98-107) Carbon Dioxide Level 32 mmol/L (21-32) Anion Gap 9 (6-14) Blood Urea Nitrogen 13 mg/dL (7-20) Creatinine 0.8 mg/dL (0.6-1.0) Estimated GFR (Cockcroft-Gault) 69.7 BUN/Creatinine Ratio 16 (6-20) Glucose Level 260 mg/dL (70-99) Lactic Acid Level 0.9 mmol/L (0.4-2.0) Calcium Level 9.7 mg/dL (8.5-10.1) Total Bilirubin 0.3 mg/dL (0.2-1.0) Aspartate Amino Transf (AST/SGOT) 15 U/L (15-37) Alanine Aminotransferase (ALT/SGPT) 17 U/L (14-59) Alkaline Phosphatase 60 U/L (46-116) Troponin I Quantitative 0.042 ng/mL (0.000-0.055) 0.071 ng/mL (0.000-0.055) IU-Cft-L-Type Natriuretic Peptide 6407 pg/mL (0-449) Total Protein 7.7 g/dL (6.4-8.2) Albumin 3.4 g/dL (3.4-5.0) Albumin/Globulin Ratio 0.8 (1.0-1.7) Urine Collection Type Unknown Urine Color Yellow Urine Clarity Cloudy Urine pH 7.0 Urine Specific [place] 1.020 Urine Protein 100 mg/dL (NEG-TRACE) Urine Glucose (UA) Negative mg/dL (NEG) Urine Ketones (Stick) 15 mg/dL (NEG) Urine Blood Large (NEG) Urine Nitrite Negative (NEG) Urine Bilirubin Negative (NEG) Urine Urobilinogen Dipstick 0.2 mg/dL (0.2 mg/dL) Urine Leukocyte Esterase Large (NEG) Urine RBC 11-20 /HPF (0-2) Urine WBC Tntc /HPF (0-4) Urine Squamous Epithelial Cells Occ /LPF Urine Bacteria Few /HPF (0-FEW) Urine Mucus Mod /LPF Urine Yeast Present /HPF Test 07/04/18 07:35 07/04/18 08:10 Troponin I Quantitative 0.063 ng/mL (0.000-0.055) O2 Saturation 99 % (92-99) Arterial Blood pH 7.11 (7.35-7.45) Arterial Blood pCO2 at Patient Temp 98 mmHg (35-46) Arterial Blood pO2 at Patient Temp 221 mmHg (65-108) Arterial Blood HCO3 30 mmol/L (21-28) Arterial Blood Base Excess -1 mmol/L (-3-3) FiO2 70 Laboratory Tests Test 07/03/18 23:41 07/03/18 23:50 07/04/18 02:50 07/04/18 04:20 O2 Saturation 96 % (92-99) Arterial Blood pH 7.06 (7.35-7.45) Arterial Blood pCO2 at Patient Temp 121 mmHg (35-46) Arterial Blood pO2 at Patient Temp 132 mmHg (65-108) Arterial Blood HCO3 34 mmol/L (21-28) Arterial Blood Base Excess 1 mmol/L (-3-3) FiO2 100 White Blood Count 18.0 x10^3/uL (4.0-11.0) Red Blood Count 3.68 x10^6/uL (3.50-5.40) Hemoglobin 11.0 g/dL (12.0-15.5) Hematocrit 34.6 % (36.0-47.0) Mean Corpuscular Volume 94 fL (79-100) Mean Corpuscular Hemoglobin 30 pg (25-35) Mean Corpuscular Hemoglobin Concent 32 g/dL (31-37) Red Cell Distribution Width 13.1 % (11.5-14.5) Platelet Count 369 x10^3/uL (140-400) Neutrophils (%) (Auto) 83 % (31-73) Lymphocytes (%) (Auto) 12 % (24-48) Monocytes (%) (Auto) 4 % (0-9) Eosinophils (%) (Auto) 0 % (0-3) Basophils (%) (Auto) 1 % (0-3) Neutrophils # (Auto) 15.1 x10^3uL (1.8-7.7) Lymphocytes # (Auto) 2.2 x10^3/uL (1.0-4.8) Monocytes # (Auto) 0.7 x10^3/uL (0.0-1.1) Eosinophils # (Auto) 0.0 x10^3/uL (0.0-0.7) Basophils # (Auto) 0.1 x10^3/uL (0.0-0.2) Segmented Neutrophils % 78 % (35-66) Band Neutrophils % 4 % (0-9) Lymphocytes % 15 % (24-48) Monocytes % 2 % (0-10) Eosinophils % 1 % (0-5) Toxic Granulation Slight Platelet Estimate Adequate (ADEQUATE) Sodium Level 146 mmol/L (136-145) Potassium Level 4.2 mmol/L (3.5-5.1) Chloride Level 105 mmol/L (98-107) Carbon Dioxide Level 32 mmol/L (21-32) Anion Gap 9 (6-14) Blood Urea Nitrogen 13 mg/dL (7-20) Creatinine 0.8 mg/dL (0.6-1.0) Estimated GFR (Cockcroft-Gault) 69.7 BUN/Creatinine Ratio 16 (6-20) Glucose Level 260 mg/dL (70-99) Lactic Acid Level 0.9 mmol/L (0.4-2.0) Calcium Level 9.7 mg/dL (8.5-10.1) Total Bilirubin 0.3 mg/dL (0.2-1.0) Aspartate Amino Transf (AST/SGOT) 15 U/L (15-37) Alanine Aminotransferase (ALT/SGPT) 17 U/L (14-59) Alkaline Phosphatase 60 U/L (46-116) Troponin I Quantitative 0.042 ng/mL (0.000-0.055) 0.071 ng/mL (0.000-0.055) ML-Ycy-A-Type Natriuretic Peptide 6407 pg/mL (0-449) Total Protein 7.7 g/dL (6.4-8.2) Albumin 3.4 g/dL (3.4-5.0) Albumin/Globulin Ratio 0.8 (1.0-1.7) Urine Collection Type Unknown Urine Color Yellow Urine Clarity Cloudy Urine pH 7.0 Urine Specific [place] 1.020 Urine Protein 100 mg/dL (NEG-TRACE) Urine Glucose (UA) Negative mg/dL (NEG) Urine Ketones (Stick) 15 mg/dL (NEG) Urine Blood Large (NEG) Urine Nitrite Negative (NEG) Urine Bilirubin Negative (NEG) Urine Urobilinogen Dipstick 0.2 mg/dL (0.2 mg/dL) Urine Leukocyte Esterase Large (NEG) Urine RBC 11-20 /HPF (0-2) Urine WBC Tntc /HPF (0-4) Urine Squamous Epithelial Cells Occ /LPF Urine Bacteria Few /HPF (0-FEW) Urine Mucus Mod /LPF Urine Yeast Present /HPF Test 07/04/18 07:35 07/04/18 08:10 Troponin I Quantitative 0.063 ng/mL (0.000-0.055) O2 Saturation 99 % (92-99) Arterial Blood pH 7.11 (7.35-7.45) Arterial Blood pCO2 at Patient Temp 98 mmHg (35-46) Arterial Blood pO2 at Patient Temp 221 mmHg (65-108) Arterial Blood HCO3 30 mmol/L (21-28) Arterial Blood Base Excess -1 mmol/L (-3-3) FiO2 70 VTE Prophylaxis Ordered VTE Prophylaxis Devices: Yes VTE Pharmacological Prophylaxi: No Assessment/Plan Assessment/Plan A/P; Acute hypoxic hypercapnic respiratory failure, multifactorial - on BIPAP, will slowly withdraw per family wishes Encephalopathy, metabolic - hypercapnic, will go with palliative plan 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 Possible sources include urinary tract infection as well as pneumonia. Hypernatremia - likely from PEG tube obstruction PEG obstruction - going with palliative care Hypotension - fluid boluses for sepsis given FEN - NPO PPX - SCDs DNR/DNI Was admitted to ICU overnight, however, after long discussion with family withdrawal of aggressive care will be initiated. Morphine for increased respirations/pain and lorazepam for agitation. SL atropine for secretions ERASMO WILSON MD Jul 04, 2018 11:56
--- NOTE | 2018-07-04 12:24 | PDOC3 ---
Discharge Summary Visit Information Date of Admission: Jul 04, 2018 Date of Discharge: Jul 04, 2018 Admitting Diagnosis: Acute hypercapnic respiratory failure Final Diagnosis Problems Medical Problems: (1) Acute hypercapnic respiratory failure Status: Acute (2) CHF (congestive heart failure) Status: Acute (3) Facility-acquired pneumonia Status: Acute Brief Hospital Course Allergies Allergies Coded Allergies Type Severity Reaction Last Updated Verified No Known Drug Allergies 06/19/18 No Vital Signs Vital Signs Date Time Temp Pulse Resp B/P (MAP) Pulse Ox O2 Delivery O2 Flow Rate FiO2 07/04/18 11:00 35 26 103/48 (66) 85 Nasal Cannula 2.0 07/04/18 08:00 100.5 100.5 Lab Results Laboratory Tests Test 07/03/18 23:41 07/03/18 23:50 07/04/18 02:50 07/04/18 04:20 O2 Saturation 96 % (92-99) Arterial Blood pH 7.06 (7.35-7.45) Arterial Blood pCO2 at Patient Temp 121 mmHg (35-46) Arterial Blood pO2 at Patient Temp 132 mmHg (65-108) Arterial Blood HCO3 34 mmol/L (21-28) Arterial Blood Base Excess 1 mmol/L (-3-3) FiO2 100 White Blood Count 18.0 x10^3/uL (4.0-11.0) Red Blood Count 3.68 x10^6/uL (3.50-5.40) Hemoglobin 11.0 g/dL (12.0-15.5) Hematocrit 34.6 % (36.0-47.0) Mean Corpuscular Volume 94 fL (79-100) Mean Corpuscular Hemoglobin 30 pg (25-35) Mean Corpuscular Hemoglobin Concent 32 g/dL (31-37) Red Cell Distribution Width 13.1 % (11.5-14.5) Platelet Count 369 x10^3/uL (140-400) Neutrophils (%) (Auto) 83 % (31-73) Lymphocytes (%) (Auto) 12 % (24-48) Monocytes (%) (Auto) 4 % (0-9) Eosinophils (%) (Auto) 0 % (0-3) Basophils (%) (Auto) 1 % (0-3) Neutrophils # (Auto) 15.1 x10^3uL (1.8-7.7) Lymphocytes # (Auto) 2.2 x10^3/uL (1.0-4.8) Monocytes # (Auto) 0.7 x10^3/uL (0.0-1.1) Eosinophils # (Auto) 0.0 x10^3/uL (0.0-0.7) Basophils # (Auto) 0.1 x10^3/uL (0.0-0.2) Segmented Neutrophils % 78 % (35-66) Band Neutrophils % 4 % (0-9) Lymphocytes % 15 % (24-48) Monocytes % 2 % (0-10) Eosinophils % 1 % (0-5) Toxic Granulation Slight Platelet Estimate Adequate (ADEQUATE) Sodium Level 146 mmol/L (136-145) Potassium Level 4.2 mmol/L (3.5-5.1) Chloride Level 105 mmol/L (98-107) Carbon Dioxide Level 32 mmol/L (21-32) Anion Gap 9 (6-14) Blood Urea Nitrogen 13 mg/dL (7-20) Creatinine 0.8 mg/dL (0.6-1.0) Estimated GFR (Cockcroft-Gault) 69.7 BUN/Creatinine Ratio 16 (6-20) Glucose Level 260 mg/dL (70-99) Lactic Acid Level 0.9 mmol/L (0.4-2.0) Calcium Level 9.7 mg/dL (8.5-10.1) Total Bilirubin 0.3 mg/dL (0.2-1.0) Aspartate Amino Transf (AST/SGOT) 15 U/L (15-37) Alanine Aminotransferase (ALT/SGPT) 17 U/L (14-59) Alkaline Phosphatase 60 U/L (46-116) Troponin I Quantitative 0.042 ng/mL (0.000-0.055) 0.071 ng/mL (0.000-0.055) VF-Qje-J-Type Natriuretic Peptide 6407 pg/mL (0-449) Total Protein 7.7 g/dL (6.4-8.2) Albumin 3.4 g/dL (3.4-5.0) Albumin/Globulin Ratio 0.8 (1.0-1.7) Urine Collection Type Unknown Urine Color Yellow Urine Clarity Cloudy Urine pH 7.0 Urine Specific [place] 1.020 Urine Protein 100 mg/dL (NEG-TRACE) Urine Glucose (UA) Negative mg/dL (NEG) Urine Ketones (Stick) 15 mg/dL (NEG) Urine Blood Large (NEG) Urine Nitrite Negative (NEG) Urine Bilirubin Negative (NEG) Urine Urobilinogen Dipstick 0.2 mg/dL (0.2 mg/dL) Urine Leukocyte Esterase Large (NEG) Urine RBC 11-20 /HPF (0-2) Urine WBC Tntc /HPF (0-4) Urine Squamous Epithelial Cells Occ /LPF Urine Bacteria Few /HPF (0-FEW) Urine Mucus Mod /LPF Urine Yeast Present /HPF Test 07/04/18 07:35 07/04/18 08:10 Troponin I Quantitative 0.063 ng/mL (0.000-0.055) O2 Saturation 99 % (92-99) Arterial Blood pH 7.11 (7.35-7.45) Arterial Blood pCO2 at Patient Temp 98 mmHg (35-46) Arterial Blood pO2 at Patient Temp 221 mmHg (65-108) Arterial Blood HCO3 30 mmol/L (21-28) Arterial Blood Base Excess -1 mmol/L (-3-3) FiO2 70 Laboratory Tests Test 07/03/18 23:41 07/03/18 23:50 07/04/18 02:50 07/04/18 04:20 O2 Saturation 96 % (92-99) Arterial Blood pH 7.06 (7.35-7.45) Arterial Blood pCO2 at Patient Temp 121 mmHg (35-46) Arterial Blood pO2 at Patient Temp 132 mmHg (65-108) Arterial Blood HCO3 34 mmol/L (21-28) Arterial Blood Base Excess 1 mmol/L (-3-3) FiO2 100 White Blood Count 18.0 x10^3/uL (4.0-11.0) Red Blood Count 3.68 x10^6/uL (3.50-5.40) Hemoglobin 11.0 g/dL (12.0-15.5) Hematocrit 34.6 % (36.0-47.0) Mean Corpuscular Volume 94 fL (79-100) Mean Corpuscular Hemoglobin 30 pg (25-35) Mean Corpuscular Hemoglobin Concent 32 g/dL (31-37) Red Cell Distribution Width 13.1 % (11.5-14.5) Platelet Count 369 x10^3/uL (140-400) Neutrophils (%) (Auto) 83 % (31-73) Lymphocytes (%) (Auto) 12 % (24-48) Monocytes (%) (Auto) 4 % (0-9) Eosinophils (%) (Auto) 0 % (0-3) Basophils (%) (Auto) 1 % (0-3) Neutrophils # (Auto) 15.1 x10^3uL (1.8-7.7) Lymphocytes # (Auto) 2.2 x10^3/uL (1.0-4.8) Monocytes # (Auto) 0.7 x10^3/uL (0.0-1.1) Eosinophils # (Auto) 0.0 x10^3/uL (0.0-0.7) Basophils # (Auto) 0.1 x10^3/uL (0.0-0.2) Segmented Neutrophils % 78 % (35-66) Band Neutrophils % 4 % (0-9) Lymphocytes % 15 % (24-48) Monocytes % 2 % (0-10) Eosinophils % 1 % (0-5) Toxic Granulation Slight Platelet Estimate Adequate (ADEQUATE) Sodium Level 146 mmol/L (136-145) Potassium Level 4.2 mmol/L (3.5-5.1) Chloride Level 105 mmol/L (98-107) Carbon Dioxide Level 32 mmol/L (21-32) Anion Gap 9 (6-14) Blood Urea Nitrogen 13 mg/dL (7-20) Creatinine 0.8 mg/dL (0.6-1.0) Estimated GFR (Cockcroft-Gault) 69.7 BUN/Creatinine Ratio 16 (6-20) Glucose Level 260 mg/dL (70-99) Lactic Acid Level 0.9 mmol/L (0.4-2.0) Calcium Level 9.7 mg/dL (8.5-10.1) Total Bilirubin 0.3 mg/dL (0.2-1.0) Aspartate Amino Transf (AST/SGOT) 15 U/L (15-37) Alanine Aminotransferase (ALT/SGPT) 17 U/L (14-59) Alkaline Phosphatase 60 U/L (46-116) Troponin I Quantitative 0.042 ng/mL (0.000-0.055) 0.071 ng/mL (0.000-0.055) KA-Wlt-A-Type Natriuretic Peptide 6407 pg/mL (0-449) Total Protein 7.7 g/dL (6.4-8.2) Albumin 3.4 g/dL (3.4-5.0) Albumin/Globulin Ratio 0.8 (1.0-1.7) Urine Collection Type Unknown Urine Color Yellow Urine Clarity Cloudy Urine pH 7.0 Urine Specific [place] 1.020 Urine Protein 100 mg/dL (NEG-TRACE) Urine Glucose (UA) Negative mg/dL (NEG) Urine Ketones (Stick) 15 mg/dL (NEG) Urine Blood Large (NEG) Urine Nitrite Negative (NEG) Urine Bilirubin Negative (NEG) Urine Urobilinogen Dipstick 0.2 mg/dL (0.2 mg/dL) Urine Leukocyte Esterase Large (NEG) Urine RBC 11-20 /HPF (0-2) Urine WBC Tntc /HPF (0-4) Urine Squamous Epithelial Cells Occ /LPF Urine Bacteria Few /HPF (0-FEW) Urine Mucus Mod /LPF Urine Yeast Present /HPF Test 07/04/18 07:35 07/04/18 08:10 Troponin I Quantitative 0.063 ng/mL (0.000-0.055) O2 Saturation 99 % (92-99) Arterial Blood pH 7.11 (7.35-7.45) Arterial Blood pCO2 at Patient Temp 98 mmHg (35-46) Arterial Blood pO2 at Patient Temp 221 mmHg (65-108) Arterial Blood HCO3 30 mmol/L (21-28) Arterial Blood Base Excess -1 mmol/L (-3-3) FiO2 70 Brief Hospital Course 77-year-old female who presents via [facility] with reports of respiratory distress. EMS reports that while in route, patient had inadequate respirations and so they were assisting with bagged respirations. Patient recently had been admitted to this facility with respiratory failure. She had also been to this facility because PEG tube had been obstructed. Additional history is limited due to severity of patient condition. She was found with AB.06/121/132 started on BIPAP, had leukocytosis and hypernatremia as well She is a resident [facility], who was admitted on 06/19/2018 with an altered mental status. She was found to be unresponsive with agonal breathing. Was treated for sepsis with possible sources of pneumonia versus urinary tract infection. She did very well actually, and she was treated with Zosyn and vancomycin. She was eventually successfully extubated; however, the family have noted marked decline in her condition recently, and after discussion with the palliative care team, they opted to account for comfort care , and therefore, a decision was made to discharge her back to [facility] with the plan to consult hospice for evaluation and treatment which was pending prior to her return to the ED today. After long discussion with family and pulmonary the family has asked to have hospice evaluation now and withdraw aggressive care. She was initiated on morphine prn and continued with agonal breathing after discontinuation of BIPAP and ceased respirations at 1151, confirmed with asystole on the monitor. Discharge Information Condition at Discharge: / Disposition/Orders: Scheduled Atorvastatin Calcium (Atorvastatin Calcium) 40 Mg Tablet, 40 MG PO HS for FOR CHOLESTEROL, #30 Ref 0 (Reported) Entered as Reported by: HANNA VARGAS on 06/19/18 1340 Carbidopa/Levodopa (Sinemet 25-100 Mg Tablet) 1 Each Tablet, 0.5 TAB PO Q4HRS for parkinson's, (Reported) Entered as Reported by: HANNA VARGAS on 06/19/18 1340 Carboxymethylcellulos/Glycerin (Refresh Optive Eye Drops) 15 Ml Drops, 15 ML OP TID for DRY EYE, (Reported) Entered as Reported by: HANNA VARGAS on 06/19/18 134 Cholecalciferol (Vitamin D3) (Vitamin D3) 1,000 Unit Tablet, 2,000 UNIT PO DAILY for SUPPLEMENT, (Reported) Entered as Reported by: HANNA VARGAS on 06/19/18 134 Cyanocobalamin (Vitamin B-12) (Vitamin B-12) 1,000 Mcg Tablet, 1,000 MCG PO DAILY for SUPPLEMENT, (Reported) Entered as Reported by: HANNA VARGAS on 06/19/18 134 Droxidopa (Northera) 300 Mg Capsule, 300 MG PO TIDAC for Parkinson's, (Reported) Entered as Reported by: HANNA VARGAS on 06/19/18 134 Fludrocortisone Acetate (Fludrocortisone Acetate) 0.1 Mg Tablet, 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, (Reported) Entered as Reported by: HANNA VARGAS on 06/19/18 134 Fluticasone Propionate (Flonase Allergy Relief) 9.9 Ml [place].susp, 2 SPRAYS NS DAILY for Allergies, (Reported) Entered as Reported by: HANNA VARGAS on 06/19/18 134 Glucosamine Sulfate 2KCL (Glucosamine) 1,000 Mg Tablet, 1,000 MG PO DAILY for DM , (Reported) Entered as Reported by: HANNA VARGAS on 06/19/18 134 Guaifenesin (Mucinex) 600 Mg Tablet.er, 1 TAB PO BID for cough, #14 (Reported) Entered as Reported by: HANNA VARGAS on 06/19/18 134 Lactobacillus Acidophilus (Probiotic) 1 Each Capsule, 1 EACH PO BID for supplement, (Reported) Entered as Reported by: HANNA VARGAS on 06/19/18 134 Melatonin (Melatonin) 3 Mg Tablet, 3 MG PO HS for insomnia, (Reported) Entered as Reported by: HANNA VARGAS on 06/19/18 134 Metformin Hcl (Metformin Hcl) 1,000 Mg Tablet, 1,000 MG PO BIDWMEALS for DM, ( Reported) Entered as Reported by: HANNA VARGAS on 06/19/18 134 Methylphenidate Hcl (Ritalin) 10 Mg Tablet, 10 MG PO DAILY for DEMENTIA, ( Reported) Entered as Reported by: HANNA VARGAS on 06/19/18 134 Midodrine Hcl (Midodrine Hcl) 10 Mg Tablet, 10 MG PO TID for HYPOTENSION, ( Reported) Entered as Reported by: HANNA VARGAS on 06/19/18 134 Mirtazapine (Remeron) 15 Mg Tablet, 15 MG PO HS for DEPRESSION, (Reported) Entered as Reported by: HANNA VARGAS on 06/19/18 134 Multivits,Ca,Minerals/Iron/FA (Thera M Plus Tablet) 1 Each Tablet, 1 EACH PO DAILY for SUPPLEMENT, (Reported) Entered as Reported by: HANNA VARGAS on 06/19/18 134 Nystatin (Nystatin) 15 Gm Cream..g., 15 GM TP BID for G TUBE SITE--ITCHING, ( Reported) Entered as Reported by: HANNA VARGAS on 06/19/18 134 Pantoprazole Sodium (Protonix) 20 Mg Tablet.dr, 20 MG PO DAILY for GERD, ( Reported) Entered as Reported by: HANNA VARGAS on 06/19/18 134 Polyethylene Glycol 3350 (Miralax) 17 Gm Powd.pack, 1 PACKET PO PRN DAILY for CONSTIPATION, #30 Ref 3 (Reported) Entered as Reported by: HANNA VARGAS on 06/19/18 134 Potassium Chloride (Potassium Chloride Oral Liquid) 20 Meq/15 Ml Liquid, 20 MEQ PEG DAILY for HEART FAILURE, (Reported) Entered as Reported by: HANNA VARGAS on 06/19/18 134 Quetiapine Fumarate (Seroquel) 25 Mg Tablet, 25 MG PO HS for DEPRESSION, ( Reported) Entered as Reported by: HANNA VARGAS on 06/19/18 134 Vit A,C & E/Lutein/Minerals (I-Nadeem Tablet) 1 Each Tablet, 1 EACH PO DAILY for supplement, (Reported) Entered as Reported by: HANNA VARGAS on 06/19/18 134 Scheduled PRN Acetaminophen (Tylenol) 325 Mg Tablet, 325 MG PO PRN Q6-8HRS PRN for PAIN, ( Reported) Entered as Reported by: HANNA VARGAS on 06/19/18 134 Carbidopa/Levodopa (Sinemet 25-100 Mg Tablet) 1 Each Tablet, 1 TAB PO PRN Q8HRS PRN for SEE COMMENTS, (Reported) Entered as Reported by: HANNA VARGAS on 06/19/18 134 Diclofenac Sodium (Voltaren) 100 Gm Gel..gram., 4 GM TP PRN Q12HRS PRN for PAIN , #100 Ref 2 (Reported) Entered as Reported by: HANNA VARGAS on 06/19/18 134 Ibuprofen (Ibuprofen) 800 Mg Tablet, 800 MG PO PRN Q8HRS PRN for INFLAMMATION, ( Reported) Entered as Reported by: HANNA VARGAS on 06/19/18 134 Sennosides (Senokot) 8.6 Mg Tablet, 1 TAB PO PRN DAILY PRN for CONSTIPATION, #40 (Reported) Entered as Reported by: HANNA VARGAS on 06/19/18 134 ERASMO WILSON MD Jul 04, 2018 12:24
--- NOTE | 2018-07-04 14:12 | CONS ---
DATE OF CONSULTATION: 07/04/2018 ATTENDING PHYSICIAN: Ned Moreland MD REASON FOR CONSULTATION: The patient seen in pulmonary consultation at the request of Dr. Moreland for acute hypercapnic hypoxemic respiratory failure. Initial arterial blood gas pH of 7.06, PaCO2 121, pO2 of 132. HISTORY OF PRESENT ILLNESS: The patient is a 77-year-old that presented via EMS with respiratory distress. She was having some increasing shortness of breath at the facility where she is residing. She was admitted to the intensive care unit and I was asked to see her in consultation. She was recently hospitalized and discharged from [place] approximately a week ago. She has multiple comorbidities including multisystem atrophy Shy-Drager autonomic neuropathy. She has been declining for the past several months. In fact, I believe there was conversation during last admission regarding palliative care and hospice. If I am not mistaken, she should have been set up with hospice in the outpatient half-way unit. She is currently in the intensive care unit. She is hypotensive, multiple family members are at the bedside including the and 3 sons. She does have an advanced directive. They indicated to me that she would not want to be intubated or resuscitated. Goal currently is to provide comfort care and make her comfortable. They want the BiPAP discontinued and all medications discontinued. PAST MEDICAL HISTORY: Includes long-standing multisystem atrophy Shy-Drager autonomic neuropathy, dementia, renal insufficiency, type 2 diabetes, coronary artery disease, anemia, dysphagia with chronic PEG tube placement. PAST SURGICAL HISTORY: PEG in place. REVIEW OF SYSTEMS: Unobtainable secondary to the patient's condition. MEDICATION: List was reviewed. ALLERGIES: Listed TO PENICILLIN and PROPARACAINE. SOCIAL HISTORY: She resides in a intermediate. She has been there for quite some time. She has not been able to ambulate for well over 6 months. PHYSICAL EXAMINATION: GENERAL: The patient was in the intensive care unit, hemodynamically unstable on pressors. VITAL SIGNS: T-max was 100.5. She had BiPAP on and she was only responsive to sternal rub. HEENT: Eyes, the sclerae were nonicteric. NECK: Jugular venous distention could not be assessed secondary to body habitus. CHEST: Full expansion. LUNGS: Crackles throughout both lung jean baptiste. CARDIOVASCULAR: Tachycardic. S1, S2. No S3. ABDOMEN: PEG in place. EXTREMITIES: Marked muscle wasting. LABORATORY DATA: Labs were reviewed. White count was elevated. Hemoglobin and hematocrit of 11 and 34. UA was noted. Troponin level was elevated. Lactic acid level was not elevated. BNP was elevated. IMPRESSION: 1. Acute hypoxemic hypercapnic respiratory failure. 2. 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 3. Fever, suspect sepsis. 4. Metabolic toxic encephalopathy, present upon admission. 5. Elevated troponin. 6. Leukocytosis. PLAN: As indicated above, the patient's family wishes to proceed with comfort care. The patient does have an advanced directive which indicated such. We will comply with the patient's wishes and proceed with comfort care. Discontinue BiPAP, discontinue all medications, initiate morphine drip and p.r.n. Ativan. I spoke with [place] from palliative care. She would also help us manage this patient's care. DINORAH FIGUEROA MD DR: REBECCA/mai JOB#: [id number] / [id number]
[2018-07-05] MEDS ORDERED: VANCOMYCIN 750 MG in IV NORMAL SALINE 250ML 250 ML IV SCH (01:00)
== END 2018-07-04 11:51 | disposition expired | DRG 871 ==
LOC: ER 23:33 → 1 WEST ICU 07-04 01:11
PROVIDERS: ADMIT Internal Medicine; ATTEND Internal Medicine
PROC: 5A09357 Assistance with Respiratory Ventilation, Less than 24 Consecutive Hours, Continuous Positive Airway Pressure (ICD-10-PCS; principal; 2018-07-04)
DX: A41.9 Sepsis, unspecified organism (principal); J96.02 Acute respiratory failure with hypercapnia; J18.9 Pneumonia, unspecified organism; J96.01 Acute respiratory failure with hypoxia; G92 Toxic encephalopathy; E87.0 Hyperosmolality and hypernatremia; G90.3 Multi-system degeneration of the autonomic nervous system; E78.00 Pure hypercholesterolemia, unspecified; G20 Parkinson's disease; I95.9 Hypotension, unspecified; I50.9 Heart failure, unspecified; Z93.1 Gastrostomy status; F03.90 Unspecified dementia, unspecified severity, without behavioral disturbance, psychotic disturbance, mood disturbance, and anxiety; E11.9 Type 2 diabetes mellitus without complications; Z51.5 Encounter for palliative care; Z66 Do not resuscitate; I25.10 Atherosclerotic heart disease of native coronary artery without angina pectoris; Z88.0 Allergy status to penicillin; Z88.8 Allergy status to other drugs, medicaments and biological substances; Z79.84 Long term (current) use of oral hypoglycemic drugs
CPT/HCPCS: 36415; 36600; 71045; 80053; 81001; 82805; 83605; 83880; 84484; 85007; 85025; 87086; 87641; 93005; 94640; 94644; 94660; 94760; 96365; 96368; 96375; J1940; J2060; J2270; J2543; J2930; J3370; J7613; J7620; J7644; 99285-25; G0378